=== PATIENT | male | born 1950 | race Caucasian/White ===

== ENCOUNTER 2018-02-12 16:38 | Inpatient (IN) | payer OTHER ==
[2018-02-12] MEDS ORDERED: D50W 25 GM/50 ML SYR IVP ONE (16:52)
[2018-02-12] MEDS ORDERED: CALCIUM GLUC 10% 1 GM/10 ML VIAL IVP ONE (16:52)
[2018-02-12] MEDS ORDERED: SODIUM BICARBONATE 150 MEQ in D5W 1,000 ML IV ONE (16:52)
[2018-02-12] MEDS ORDERED: ALBUTEROL 3 ML DEYVIAL IH ONE (16:52)
[2018-02-12] MEDS ORDERED: INSULIN REGULAR HUMAN 100 UNIT/ML UNIT IVP ONE (16:52)
[2018-02-12] MEDS ORDERED: ALBUTEROL 3 ML DEYVIAL ONE (17:14)
[2018-02-12 17:20] LABS: INR 1.7 (0.83-1.16); PROTIME(PATIENT) 20.1 SEC (12.0-15.0)
--- NOTE | 2018-02-12 17:23 | EDPHY ---
H & P Stated Complaint: Pt found by fam, AMS, tachypnic, dick denies ETOH/drugs Time Seen by Provider: 02/12/18 16:50 HPI/ROS: CHIEF COMPLAINT: Altered mental status HISTORY OF PRESENT ILLNESS: Patient is a 67-year-old alcoholic man whose mom called today because he was altered. He lives in a bus behind her house. He typically stops in daily to visit her but did not today. She went and found him minimally responsive in breathing heavy. She reports that he has no known medical history and that he has not been to the doctor for decades. She reports however that he does drink heavily. She did not suspect overdose and did not see any pills etc lying around. Patient will turn his head when his name is called but is minimally responsive otherwise and will not follow commands. He has Kussmaul breathing. Mom denies any recent fevers or infections. Mom states that he has not been drinking for the last several months. Paramedics noticed that his EKG was abnormal. Severity: Severe Modifying factors: None REVIEW OF SYSTEMS: Constitutional: See HPI EENTM: denies: blurred vision, double vision, nose congestion Respiratory: See HPI Cardiac: denies: chest pain, irregular heart rate, lightheadedness, palpitations Gastrointestinal/Abdominal: denies: abdominal pain, diarrhea, nausea, vomiting, blood streaked stools Genitourinary: denies: dysuria, frequency, hematuria, pain Musculoskeletal: denies: joint pain, muscle pain Skin: denies: lesions, rash, jaundice, bruising Neurological: See HPI Hematologic/Lymphatic: denies: blood clots, easy bleeding, easy bruising Immunologic/allergic: denies: HIV/AIDS, transplant 10 systems reviewed and negative except as noted EXAM: GENERAL: Well-appearing, well-nourished and in no acute distress. HEAD: Atraumatic, normocephalic. EYES: Pupils equal round and reactive to light, extraocular movements intact, sclera anicteric, conjunctiva are normal. ENT: TMs normal, nares patent, oropharynx clear without exudates. Moist mucous membranes. NECK: Normal range of motion, supple without lymphadenopathy or JVD. LUNGS: Breath sounds clear to auscultation bilaterally and equal. No wheezes rales or rhonchi. HEART: Regular rate and rhythm without murmurs, rubs or gallops. ABDOMEN: Slightly distended and firm BACK: No CVA tenderness, no spinal tenderness, step-offs or deformities EXTREMITIES: Normal range of motion, no pitting or edema. No clubbing or cyanosis. NEUROLOGICAL: Moving all extremities spontaneously. 5/5 strength, response to painful stimulus, normal reflexes, lateralizes to pain PSYCH: Normal mood, normal affect. SKIN: Pale Source: Family, EMS - Personal History Current Tetanus/Diphtheria Vaccine: Unsure Constitutional: Initial Vital Signs Heart Rate 105 H 02/12/18 16:49 Respiratory Rate 32 H 02/12/18 16:49 Blood Pressure 134/74 H 02/12/18 16:49 O2 Sat (%) 100 02/12/18 16:49 O2 Delivery Mode Nasal Cannula O2 (L/minute) 3 Allergies/Adverse Reactions: No Known Allergies Allergy (Verified 02/12/18 16:49) Home Medications: Medication Instructions Recorded Ibuprofen [Motrin (*)] 200 mg PO Q6 PRN 02/12/18 Medical Decision Making - Diagnostics EKG Interpretation: An EKG obtained and was read and documented in trace view. Please see trace view for full reading and report. Junctional bradycardia with peaked T-waves A repeat EKG obtained and was read and documented in trace view. Please see trace view for full reading and report. Junctional tachycardia with peaked T- waves Imaging Results: Imaging Impressions Chest X-Ray 02/12/18 17:15 Impression: Excellent central line position. Procedures: Procedure: Ultrasound guidance: Using the linear probe covered in a sterile sheath, a short axis of the vein was obtained. The vein was completely compressible and was identified as separate from the adjacent non-compressible arterial structure. Under real-time guidance, the introducer needle was observed up to the vein, and then punctured it. These images were saved on the database. Central line placement: The indication for the procedure was hyperkalemia. After verbal informed consent from patient; the risks were explained including bleeding, infection, and collapsed lung. Maximal sterile barrier technique was uses including cap, gown, sterile gloves, large sheet, hand washing and chlorhexidine prep. The area anesthetized with 1% lidocaine. The right IJ was punctured with a 19 gauge finder needle, then a wire introducer was placed, a triple-lumen was placed using Seldinger technique. There were no complications. Blood return low pressure, dark blood. The patient tolerated procedure well. CXR results: Line in good placement as interpreted by myself. Radiologist interpretation is pending. The procedure was performed by myself. ED Course/Re-evaluation: 5:[address] Padilla from [facility] as well as Dr. Guzman who will admit. Will place the patient in ICU. EKG unchanged after calcium gluconate and bicarb. Pacing now receiving insulin and albuterol. Will repeat labs every hour. 6:00 p.m. Tracy catheter placed in over L has come out. Nephrology thinks that he likely has BPH it has gradually worsened. Family does state that he has had trouble peeing recently and has not felt well. This post obstructive uropathy may be a large component of his renal failure as well. We had difficulty obtaining an accurate temperature. The patient's Tracy temp is now been taken and is low at 31. Bear hugger has been placed. Cultures have been sent. Differential Diagnosis: Partial list of the Differential diagnosis considered include but were not limited to; about a renal syndrome, hyperkalemia, acidosis and although unlikely based on the history and physical exam, I also considered sepsis, acute coronary disease. Critical Care Time: Critical care time spent by me, Dr. Trotter exclusive with this patient was 45 minutes, exclusive of the PA time exclusive of procedures. The organ system that was at risk was cardiovascular and I gave medications, consultation, admission to prevent worsening of the patient's condition - Data Points Laboratory Results: Laboratory Results 02/12/18 16:51 02/12/18 02/12/18 02/12/18 16:51 16:51 16:51 POC Hgb 7.1 gm/dL L gm/dL (13.7-17.5) POC Hct 21 % L % (40-51) PT 20.1 SEC H SEC (12.0-15.0) INR 1.70 H (0.83-1.16) APTT 33.1 SEC SEC (23.0-38.0) POC Sodium 137 mEq/L mEq/L (135-145) Sodium 139 mEq/L mEq/L (135-145) POC Potassium 8.2 mEq/L H* mEq/L (3.3-5.0) Potassium 8.5 mEq/L H* mEq/L (3.5-5.2) POC Chloride 115 mEq/L H mEq/L (97-110) Chloride 106 mEq/L mEq/L (97-110) Carbon Dioxide 5 mEq/l L* mEq/l (22-31) Anion Gap 28 mEq/L H mEq/L (6-14) POC BUN > 140 mg/dL H* mg/dL (7-23) BUN 283 mg/dL H* mg/dL (7-23) Creatinine 21.4 mg/dL H* mg/dL (0.7-1.3) POC Creatinine > 20.0 mg/dL H* mg/dL (0.7-1.3) Estimated GFR 2 Glucose 128 mg/dL H mg/dL (70-100) POC Glucose 124 mg/dL H mg/dL (70-100) Calcium 6.9 mg/dL L mg/dL (8.5-10.4) Magnesium 2.3 mg/dL mg/dL (1.6-2.3) Total Bilirubin 0.3 mg/dL mg/dL (0.1-1.4) Conjugated Bilirubin 0.3 mg/dL mg/dL (0.0-0.5) Unconjugated Bilirubin 0.0 mg/dL mg/dL (0.0-1.1) AST 27 IU/L IU/L (17-59) ALT 33 IU/L IU/L (21-72) Alkaline Phosphatase 84 IU/L IU/L (38-126) POC Troponin I Total Protein 7.0 g/dL g/dL (6.3-8.2) Albumin 3.8 g/dL g/dL (3.5-5.0) Lipase 3239 IU/L H IU/L (23-300) Salicylates < 1.0 mg/dL L mg/dL (2.0-20.0) Acetaminophen < 10 mcg/mL L mcg/mL (10-30) Ethyl Alcohol < 10 mg/dL mg/dL (0-10) 02/12/18 16:49 POC Hgb POC Hct PT INR APTT POC Sodium Sodium POC Potassium Potassium POC Chloride Chloride Carbon Dioxide Anion Gap POC BUN BUN Creatinine POC Creatinine Estimated GFR Glucose POC Glucose Calcium Magnesium Total Bilirubin Conjugated Bilirubin Unconjugated Bilirubin AST ALT Alkaline Phosphatase POC Troponin I 0.07 ng/mL ng/mL (0.00-0.08) Total Protein Albumin Lipase Salicylates Acetaminophen Ethyl Alcohol Medications Given: Propofol (Diprivan 10 Mg/Ml (Premix)) 100 mls @ 0 mls/hr IV CONT EL; Per Protocol PRN Reason: Protocol Stop: 08/11/18 20:29 Last Admin: 02/12/18 21:20 Dose: 100 mls Levetiracetam (Keppra (Premix)) 100 mls @ 400 mls/hr IV BID EL Stop: 08/11/18 21:29 Last Admin: 02/12/18 21:20 Dose: 100 mls Sodium Bicarbonate 150 meq/ (Dextrose) 1,150 mls @ 150 mls/hr IV CONT EL Stop: 08/11/18 21:14 Last Admin: 02/12/18 22:30 Dose: 1,150 mls Pantoprazole Sodium (Protonix) 40 mg IVP BID EL Stop: 08/11/18 20:59 Last Admin: 02/12/18 22:15 Dose: 40 mg Discontinued Medications Albuterol (Proventil Neb) 12 ml IH EDNOW ONE Stop: 02/12/18 16:53 Last Admin: 02/12/18 17:28 Dose: 12 ml Calcium Gluconate (Calcium Gluconate) 1 gm IVP EDNOW ONE Stop: 02/12/18 16:53 Last Admin: 02/12/18 17:07 Dose: 1 gm Dextrose (Dextrose 50% Syringe) 25 gm IVP EDNOW ONE Stop: 02/12/18 16:53 Last Admin: 02/12/18 17:10 Dose: 25 gm Etomidate (Etomidate) 20 mg IVP ONCE ONE Stop: 02/12/18 21:01 Last Admin: 02/12/18 20:15 Dose: 20 mg Sodium Bicarbonate 150 meq/ (Dextrose) 1,150 mls @ 0 mls/hr IV EDNOW ONE PRN Reason: As Directed Stop: 02/12/18 16:53 Last Admin: 02/12/18 18:10 Dose: 1,150 mls Cefazolin Sodium/Dextrose (Ancef) 100 mls @ 200 mls/hr IV ONCALL ONE PRN Reason: Protocol Stop: 02/12/18 18:37 Last Admin: 02/12/18 19:51 Dose: Not Given Sodium Chloride (Ns) 1,000 mls @ 0 mls/hr IV EDNOW ONE; Wide Open PRN Reason: Protocol Stop: 02/12/18 18:42 Last Admin: 02/12/18 16:50 Dose: 1,000 mls Insulin Human Regular (Humulin R) 10 unit IVP EDNOW ONE Stop: 02/12/18 16:53 Last Admin: 02/12/18 17:10 Dose: 10 mg Mannitol (Mannitol 25%) 25 gm IVP ONCE ONE Stop: 02/12/18 18:48 Last Admin: 02/12/18 19:28 Dose: 12.5 gm Rocuronium [place] (Zemuron) 100 mg IVP ONCE ONE Stop: 02/12/18 21:01 Last Admin: 02/12/18 20:15 Dose: 100 mg Point of Care Test Results: Chemistry 02/12/18 02/12/18 16:51 16:49 POC Sodium 137 mEq/L mEq/L (135-145) POC Potassium 8.2 mEq/L H* mEq/L (3.3-5.0) POC Chloride 115 mEq/L H mEq/L (97-110) POC BUN > 140 mg/dL H* mg/dL (7-23) POC Creatinine > 20.0 mg/dL H* mg/dL (0.7-1.3) POC Glucose 124 mg/dL H mg/dL (70-100) POC Troponin I 0.07 ng/mL ng/mL (0.00-0.08) ISTAT H&H 02/12/18 16:51 POC Hgb 7.1 gm/dL L gm/dL (13.7-17.5) POC Hct 21 % L % (40-51) Departure - Departure Disposition: [facility] Acute Clinical Impression: Hyperkalemia Acute renal failure (ARF) Qualifiers: Acute renal failure type: unspecified Qualified Code(s): N17.9 - Acute kidney failure, unspecified Condition: Critical
[2018-02-12] MEDS ORDERED: LIDOCAINE 1% 300 MG/30 ML SDV ONE (17:57)
[2018-02-12] MEDS ORDERED: ACETAMINOPHEN 325 MG TAB PO PRN (18:06)
[2018-02-12] MEDS ORDERED: HEPARIN 10,000 UNIT/10 ML MDV (1,000 UNIT/ML) IVP PRN (18:08)
[2018-02-12] MEDS ORDERED: ceFAZolin 2 GM/DEXTROSE 100 ML IV ONE (18:08)
--- NOTE | 2018-02-12 18:24 | PDCONSULT ---
Shift Mgr Note: 67 yo M with no known PMH but has not been to the doctor in many many years who presented to the ED with obtundation and heavy, deep breathing, found to have renal failure (Cr 21.4, BUN 283), hyperkalemia (K 8.5), metabolic acidosis ( bicarb 5) with very peaked T waves. History obtained mostly from mother and sister. Patient was previously a heavy drinker but family does not think he has been drinking for past several months. Only form of transportation is his bicycle and he was been too weak for several months to ride it. Mother has been getting his groceries and has not bought him any alcohol. Patient has been losing weight for many months. Mother suggested patient go to the doctor, but patient refused. At Thanksgiving dinner, patient told his [id number] that the "muscles around his stomach were hurting." He also mentioned that he was having difficulty urinating and that he started taking an OTC med for prostate. Family says the patient hasn't been well for many months. Family reports that patient does take a lot of Ibuprofen, which patient corroborates. Patient minimally interactive but does report taking Ibuprofen, having difficulty urinating, not eating/drinking much for at least several days. Reports significant nausea, no vomiting. Denies metallic taste and itching. Patient lives in a bus on his mother's property. When the patient did not come see his mother, his mother went to check on him and found patient confused and very heavy breathing, so called 911. Patient denies any toxic ingestion. Family History: unable to obtain 2/2 AMS Social History: per family, previous heavy drinking but they don't think that he has been drinking in many months. Lives in a bus on his mother's property ROS: minimal 2/2 AMS (see HPI above) Temp Pulse Resp BP Pulse Ox 31.3 C L 57 L 20 128/86 H 98 02/12/18 18:00 02/12/18 18:47 02/12/18 18:47 02/12/18 18:47 02/12/18 18:47 O2 (L/minute) 3 Exam: General- acute on chronically ill-appearing, intermittently answers yes/no questions, cachectic Eyes- anicteric sclera, no conjunctival injection HEENT- very dry mucous membranes with some dried blood on teeth, poor dentition Pulm- Kussmaul breathing, anterior lung neri CTAB, on 3L O2 NC CV- NRRR, no g/m/r, no LE edema Abd- soft, non-tender, non-distended - major catheter in place draining light yellow urine Skin- dry skin, no rashes or bruises on exposed skin Psych- somnolent, intermittently answers yes/no questions Neuro- CN II-XII grossly intact, in restraints POC Hgb 7.1 gm/dL (13.7-17.5) L 02/12/18 16:51 POC Hct 21 % (40-51) L 02/12/18 16:51 PT 20.1 SEC (12.0-15.0) H 02/12/18 16:51 INR 1.70 (0.83-1.16) H 02/12/18 16:51 APTT 33.1 SEC (23.0-38.0) 02/12/18 16:51 VBG Lactic Acid 1.2 mmol/L (0.7-2.1) 02/12/18 17:55 POC Sodium 137 mEq/L (135-145) 02/12/18 16:51 Sodium 139 mEq/L (135-145) 02/12/18 16:51 POC Potassium 8.2 mEq/L (3.3-5.0) H* 02/12/18 16:51 Potassium 8.5 mEq/L (3.5-5.2) H* 02/12/18 16:51 POC Chloride 115 mEq/L (97-110) H 02/12/18 16:51 Chloride 106 mEq/L (97-110) 02/12/18 16:51 Carbon Dioxide 5 mEq/l (22-31) L* 02/12/18 16:51 Anion Gap 28 mEq/L (6-14) H 02/12/18 16:51 POC BUN > 140 mg/dL (7-23) H* 02/12/18 16:51 BUN 283 mg/dL (7-23) H* 02/12/18 16:51 Creatinine 21.4 mg/dL (0.7-1.3) H* 02/12/18 16:51 POC Creatinine > 20.0 mg/dL (0.7-1.3) H* 02/12/18 16:51 Estimated GFR 2 02/12/18 16:51 Glucose 128 mg/dL (70-100) H 02/12/18 16:51 POC Glucose 124 mg/dL (70-100) H 02/12/18 16:51 Calcium 6.9 mg/dL (8.5-10.4) L 02/12/18 16:51 Magnesium 2.3 mg/dL (1.6-2.3) 02/12/18 16:51 Total Bilirubin 0.3 mg/dL (0.1-1.4) 02/12/18 16:51 Conjugated Bilirubin 0.3 mg/dL (0.0-0.5) 02/12/18 16:51 Unconjugated Bilirubin 0.0 mg/dL (0.0-1.1) 02/12/18 16:51 AST 27 IU/L (17-59) 02/12/18 16:51 ALT 33 IU/L (21-72) 02/12/18 16:51 Alkaline Phosphatase 84 IU/L (38-126) 02/12/18 16:51 POC Troponin I 0.07 ng/mL (0.00-0.08) 02/12/18 16:49 Total Protein 7.0 g/dL (6.3-8.2) 02/12/18 16:51 Albumin 3.8 g/dL (3.5-5.0) 02/12/18 16:51 Lipase 3239 IU/L (23-300) H 02/12/18 16:51 Urine Osmolality 376 mosmo/kg (300-900) 02/12/18 17:55 Salicylates < 1.0 mg/dL (2.0-20.0) L 02/12/18 16:51 Urine Opiates Screen NEGATIVE (NEGATIVE) 02/12/18 17:55 Acetaminophen < 10 mcg/mL (10-30) L 02/12/18 16:51 Urine Barbiturates NEGATIVE (NEGATIVE) 02/12/18 17:55 Ur Phencyclidine Scrn NEGATIVE (NEGATIVE) 02/12/18 17:55 Ur Amphetamine Screen NEGATIVE (NEGATIVE) 02/12/18 17:55 U Benzodiazepines Scrn NEGATIVE (NEGATIVE) 02/12/18 17:55 Urine Cocaine Screen NEGATIVE (NEGATIVE) 02/12/18 17:55 U Marijuana (THC) Screen NEGATIVE (NEGATIVE) 02/12/18 17:55 Ethyl Alcohol < 10 mg/dL (0-10) 02/12/18 16:51 Assessment/Plan: 67 yo M with no known PMH but has not been to the doctor in many many years who presented to the ED with obtundation and heavy, deep breathing, found to have renal failure (Cr 21.4, BUN 283), hyperkalemia (K 8.5), metabolic acidosis ( bicarb 5) with very peaked T waves. # ROXI- most likely secondary to a combination of obstruction, volume depletion, and ibuprofen and likely has been progressive for some time. --IR to put temp dialysis catheter --Planning for emergent HD on 02/12 with mannitol to minimize risk of dialysis dysequilibrium syndrome --Major catheter placed in ED with 1L out with major placement and another 250mL in first 30min after major placement --Received NS, now getting started on bicarb drip *Renal ultrasound ordered *Serum osm pending and toxic ingestion work-up sent but low suspicion *UA # Hyperkalemia- secondary to renal failure --emergent HD on 02/12 --then assess for further dialysis needs depending on urine output and K trend # Metabolic acidosis (mixture of AG and NAGMA)- secondary to renal failure --AG 28, serum osm pending but doubt toxic ingestion # AMS- presumably secondary to uremia but could be multifactorial --HD # Elevated lipase- could be 2/2 renal failure and nausea related to uremia, but could also have pancreatitis --defer to primary team for further evaluation # History of alcohol abuse- family does not think patient has been drinking for some time because he has been feeling too poorly --abdominal ultrasound planned to evaluate for cirrhosis critical care time 5:25pm-6:59pm no including any procedures. >50% of time spent on counseling and coordination of care Discussed with Dr. Trotter and Dr. Guzman
--- NOTE | 2018-02-12 18:40 | PDHPUP ---
History & Physical Update H&P update statement: This history and physical update is based on an assessment of the patient which was completed after admission or registration (within 24 hours), but prior to the surgery/procedure. Renal failure in need of emergent dialysis. Plan for temp HD catheter placement. H&P update: H&P reviewed & patient examined, no change in patient's condition since H&P completed
[2018-02-12] MEDS ORDERED: NS 1,000 ML IV ONE (18:41)
[2018-02-12] MEDS ORDERED: MANNITOL 25% 12.5 GM/50 ML VIAL IVP ONE (18:47)
--- NOTE | 2018-02-12 18:57 | PDRADPN ---
Radiology Procedure Note Date of Procedure: 02/12/18 Radiologist: Ryan Neff Anesthesia: Local (Specify) (Lidocain) Pre-op Diagnosis: ROXI Post-op Diagnosis: ROXI Indication: ROXI Procedure: Temp HD cath Finding(s): Patent right IJ. 16 cm Temp HD catheter placed. Ok to use now. Inf/Abcess present in the surg proc area at time of surgery?: No EBL: Minimal
--- NOTE | 2018-02-12 19:14 | CPEKG ---
Test Reason : OPEN Blood Pressure : / mmHG Vent. Rate : 124 BPM Atrial Rate : 000 BPM P-R Int : 166 ms QRS Dur : 219 ms QT Int : 314 ms P-R-T Axes : 000 -64 040 degrees QTc Int : 451 ms Junctional tachycardia Ventricular bigeminy Nonspecific IVCD with LAD Left ventricular hypertrophy Abnormal T, consider ischemia, lateral leads Confirmed by Yves Trotter ([id number]) on 02/12/2018 7:14:06 PM Referred By: Confirmed By:Yves Trotter
--- NOTE | 2018-02-12 19:15 | CPEKG ---
Test Reason : OPEN Blood Pressure : / mmHG Vent. Rate : 054 BPM Atrial Rate : 000 BPM P-R Int : 256 ms QRS Dur : 195 ms QT Int : 573 ms P-R-T Axes : 000 -54 059 degrees QTc Int : 544 ms Atrial fibrillation Nonspecific IVCD with LAD Confirmed by Yves Trotter ([id number]) on 02/12/2018 7:14:27 PM Referred By: Confirmed By:Yves Trotter
[2018-02-12] MEDS ORDERED: LORazepam 2 MG/ML INJ ONE (20:15)
[2018-02-12 20:29] LABS: HEPATITIS B SURFACE ANTIGEN NEGATIVE (NEGATIVE)
[2018-02-12] MEDS ORDERED: CALCIUM CHLORIDE 1 GM/10 ML INJ ONE (20:30)
[2018-02-12 20:34] LABS: HEPATITIS B CORE AB TOTAL NEGATIVE (NEGATIVE)
--- NOTE | 2018-02-12 20:36 | PDGENHP ---
History and Physical - Chief Complaint found minimally responsive - History of Present Illness 67yo M who has not sought medical care for his adult life brought in by family after being found minimally responsive. He lives in a bus that is in the backyard of his mother's home. Typically has significant alcohol consumption. Family noticed that he was weaker than normal and drinking less around giving. Unable to ride on his bicycle due to weakness. He also reportedly told them that he was having trouble urinating around that time. He also complained of some back/flank pain for which he was taking ibuprofen but unclear how much. Family checked in on him today when they hadn't seen him in 2 days. In the ED, labs were remarkable for signficantly elevated potassium to 8.5 with peaked T waves on ECG. Creatinine was >20 and BUN >280. Patient was confused but arousable. A major catheter was placed with >1250mL of urine output. A central venous catheter was placed in the ED and then a temp dialysis catheter was placed by IR. Nephrology was consulted and HD was initiated. After approximately 50 minutes of HD in the ICU, the patient seized and briefly coded with ROSC after about 2 minutes of CPR (please see separate Code Blue note). He was intubated. Post-code labs showed a hemoglobin of 4.8 with improved K at 4.2 and bicarbonate had improved from 5 to 14. The etiology of his loss of pulses was unclear, possibly related to fluid shifts with HD vs anemia. History Information - Allergies/Home Medication List Allergies/Adverse Reactions: No Known Allergies Allergy (Verified 02/12/18 16:49) Home Medications: Ibuprofen [Motrin (*)] 200 mg PO Q6 PRN 02/12/18 [Last Taken Unknown] I have personally reviewed and updated: family history, medical history, social history, surgical history - Past Medical History Additional medical history: none known - Surgical History Reports: no pertinent surgical hx - Family History Additional family history: unknown - Social History Alcohol Use: Heavy (issues with alcohol abuse throughout whole life) Drug Use: None Additional social history: Lives in bus behind mother's house. Sister and mother at bedside. Review of Systems Review of Systems: Unable to obtain 2/2 patient's mental status. Physical Exam Physical Exam: Temp Pulse Resp BP Pulse Ox 32.8 C L 90 20 150/73 H 100 02/12/18 20:00 02/12/18 20:00 02/12/18 20:00 02/12/18 20:00 02/12/18 20:00 O2 (L/minute) 1 Constitutional: no apparent distress, chronically ill appearing Eyes: anicteric sclera Ears, Nose, Mouth, Throat: dry mucous membranes, other (dried blood in mouth) Cardiovascular: no murmur, rub, or gallop, tachycardia, No edema Respiratory: no rales or rhonchi, other (tachypneic), No expiratory wheeze Gastrointestinal: normoactive bowel sounds, soft, non-tender abdomen, no palpable masses Genitourinary: major in urethra Skin: warm Musculoskeletal: generalized weakness Neurologic: other (alert, nodding to some questions but generally not oriented, moving all extremities) Psychiatric: encephalopathic Lab Data & Imaging Review 02/12/18 20:35 02/12/18 20:35 POC Hgb 7.1 gm/dL (13.7-17.5) L 02/12/18 16:51 POC Hct 21 % (40-51) L 02/12/18 16:51 PT 20.1 SEC (12.0-15.0) H 02/12/18 16:51 INR 1.70 (0.83-1.16) H 02/12/18 16:51 APTT 33.1 SEC (23.0-38.0) 02/12/18 16:51 VBG Lactic Acid 1.2 mmol/L (0.7-2.1) 02/12/18 17:55 POC Sodium 137 mEq/L (135-145) 02/12/18 16:51 Sodium 139 mEq/L (135-145) 02/12/18 16:51 POC Potassium 8.2 mEq/L (3.3-5.0) H* 02/12/18 16:51 Potassium 8.5 mEq/L (3.5-5.2) H* 02/12/18 16:51 POC Chloride 115 mEq/L (97-110) H 02/12/18 16:51 Chloride 106 mEq/L (97-110) 02/12/18 16:51 Carbon Dioxide 5 mEq/l (22-31) L* 02/12/18 16:51 Anion Gap 28 mEq/L (6-14) H 02/12/18 16:51 POC BUN > 140 mg/dL (7-23) H* 02/12/18 16:51 BUN 283 mg/dL (7-23) H* 02/12/18 16:51 Creatinine 21.4 mg/dL (0.7-1.3) H* 02/12/18 16:51 POC Creatinine > 20.0 mg/dL (0.7-1.3) H* 02/12/18 16:51 Estimated GFR 2 02/12/18 16:51 Glucose 128 mg/dL (70-100) H 02/12/18 16:51 POC Glucose 124 mg/dL (70-100) H 02/12/18 16:51 Serum Osmolality 416 mosmo/kg (280-297) H 02/12/18 17:55 Calcium 6.9 mg/dL (8.5-10.4) L 02/12/18 16:51 Magnesium 2.3 mg/dL (1.6-2.3) 02/12/18 16:51 Total Bilirubin 0.3 mg/dL (0.1-1.4) 02/12/18 16:51 Conjugated Bilirubin 0.3 mg/dL (0.0-0.5) 02/12/18 16:51 Unconjugated Bilirubin 0.0 mg/dL (0.0-1.1) 02/12/18 16:51 AST 27 IU/L (17-59) 02/12/18 16:51 ALT 33 IU/L (21-72) 02/12/18 16:51 Alkaline Phosphatase 84 IU/L (38-126) 02/12/18 16:51 Ammonia 17.0 uMOL/L (9.0-30.0) 02/12/18 19:50 POC Troponin I 0.07 ng/mL (0.00-0.08) 02/12/18 16:49 Total Protein 7.0 g/dL (6.3-8.2) 02/12/18 16:51 Albumin 3.8 g/dL (3.5-5.0) 02/12/18 16:51 Lipase 3239 IU/L (23-300) H 02/12/18 16:51 Urine Osmolality 376 mosmo/kg (300-900) 02/12/18 17:55 Ur Random Creatinine 55.8 mg/dL 02/12/18 17:55 U Random Total Protein 51 mg/dL (0-11) H 02/12/18 17:55 Ur Random Sodium 59 mEq/L (30-90) 02/12/18 17:55 Salicylates < 1.0 mg/dL (2.0-20.0) L 02/12/18 16:51 Urine Opiates Screen NEGATIVE (NEGATIVE) 02/12/18 17:55 Acetaminophen < 10 mcg/mL (10-30) L 02/12/18 16:51 Urine Barbiturates NEGATIVE (NEGATIVE) 02/12/18 17:55 Ur Phencyclidine Scrn NEGATIVE (NEGATIVE) 02/12/18 17:55 Ur Amphetamine Screen NEGATIVE (NEGATIVE) 02/12/18 17:55 U Benzodiazepines Scrn NEGATIVE (NEGATIVE) 02/12/18 17:55 Urine Cocaine Screen NEGATIVE (NEGATIVE) 02/12/18 17:55 U Marijuana (THC) Screen NEGATIVE (NEGATIVE) 02/12/18 17:55 Ethyl Alcohol < 10 mg/dL (0-10) 02/12/18 16:51 Hep Bs Antigen NEGATIVE (NEGATIVE) 02/12/18 17:37 Hep B Core Total Ab NEGATIVE (NEGATIVE) 02/12/18 17:37 Assessment & Plan Assessment: 67yo M with history of etoh abuse who has not sought medical care for his adult life brought in by family after being found minimally responsive. Labs show acute renal failure and severe hyperkalemia with ECG changes. Plan: 1. Acute renal failure: Suspect multifactorial from obstruction (likely prostatic), nsaid use, and dehydration. No prior labs for comparison. - Nephrology aware - IR placed temp dialysis cath, s/p 50 minutes HD this evening - Plan for CRRT tomorrow - Continue major - Renal ultrasound, UA, urine lytes ordered - Checking serum osm, toxic alcohols ordered in ED 2. Life-threatening hyperkalemia: Due to above - Down to 4.2 after emergent HD, recheck in AM - Telemetry 3. Cardiac arrest: ROSC after brief CPR, no meds. Telemetry shows significant bradycardia around time of arrest. I suspect he seized -> respiratory failure - > bradycardia -> arrest. 4. Severe anemia: Hgb 4.8 in post-code labs. Has uremic platelet dysfunction and coagulopathy putting him at risk for bleeding but none identified on exam. - Transfuse 2u PRBCs now, recheck - Start IV PPI 5. Acute respiratory failure: In setting of seizure/inability to protect airway. - Now intubated. Continue lung protective ventilation. Propofol for sedation 6. Seizure: Suspicious that this was related to fluid/electrolyte shifts with HD. Seizure threshold certainly lowered with BUN>280. - Start keppra 500mg IV BID 7. Metabolic acidosis: Anion and non-anion gap, related to renal failure. - Improved after initial HD, continue bicarbonate gtt - Follow up toxic ingestion labs 8. Acute metabolic encephalopathy: Surprisingly he was mildly alert prior to arrest. Related to uremia. - Utox, salicylates, acetominophen levels pending 9. Elevated lipase: Unclear if denotes true pancreatitis vs r/t nausea/vomiting in setting of renal failure. - Checking US to evaluate gallbladder/biliary tree and pancreas 10. Etoh abuse: Family reports he hasn't been drinking for >1 month because he' s been feeling so poorly, making him low risk for alcohol withdrawal. - IV thiamine - Check RUQ ultrasound to eval for cirrhosis 11. Coagulopathy: Nutritional vs r/t possible liver disease. - Monitor, vit K/FFP if bleeding VTE ppx: SCDs, holding pharmacologic with anemia Code: full GI ppx: PPI Diet: NPO Dispo: Admit as inpatient to ICU I spent a total of 75 minutes of critical care time between initial evaluation and cardiac arrest. >50% of time spent on counseling and coordination of care.
--- NOTE | 2018-02-12 20:37 | EDPHY ---
Inpatient Procedure Narrative: Was called to the patient's room because there was a code blue. It reportedly the patient had seized. Medicine and surgical services were there and requesting intubation. Intubation: Emergent intubation. While manually bagging the patient and maintaining the airway, The patient was sedated with 20 mg of Etomidate and paralyzed with 100 mg rocuronium. A 7.5 endotracheal tube was placed using the Glidescope. It was placed at 24 cm at the teeth. Placement was confirmed by direct visualization, good color change, and bilateral breath sounds with absent gastric sounds. Chest x-ray is pending. Saturations improved significantly and the procedure was successful.
--- NOTE | 2018-02-12 20:40 | PDCODEBLUE ---
Code Blue Note Responded to overhead Code Blue on this patient. Upon my arrival, patient already with ROSC. Per RN and optical instrument assembler, patient seized about 50 minutes into HD. Then became bradycardic and lost pulses. Code was called with immediate initiation of CPR which last approximately 2 minutes prior to regaining pulses. He did not receive epinephrine. We gave him 1g calcium, mannitol, and he was receiving bicarbonate IV. He was bag-masked. ED physician Yves Trotter performed rapid sequence intubation with rocuronium and etomidate. His BP remained stable throughout. He was placed on ventilator. Etiology of seizure and loss of pulses unclear, possibly related to fluid shifts during HD. I personally notified color card maker (Dr Carnes) and tug master (Dr Pham). CBC, CMP, ABG, CXR, ECG ordered post-code. OG tube being placed for copious secretions. RN notifying family.
[2018-02-12 20:58] LABS: PLATELET COUNT 155 10^3/uL (150-400)
[2018-02-12] MEDS ORDERED: ETOMIDATE 40 MG/20 ML INJ IVP ONE (21:00)
[2018-02-12] MEDS ORDERED: ROCURONIUM 100 MG/10 ML VIAL IVP ONE (21:00)
[2018-02-12] MEDS ORDERED: HEPARIN 50,000 UNIT/10 ML VIAL ONE (21:14)
[2018-02-12] MEDS: levETIRAcetam 500MG/NACL 100 ML IV SCH (21:20)
[2018-02-12] MEDS: PROPOFOL/EMULSION 100 ML IV SCH (21:20)
[2018-02-12] MEDS ORDERED: HEPARIN 5,000 UNIT/0.5 ML INJ SC SCH (22:00)
[2018-02-12] MEDS: PANTOPRAZOLE SODIUM 40 MG VIAL IVP SCH (22:15)
[2018-02-12] MEDS: SODIUM BICARBONATE 150 MEQ in D5W 1,000 ML IV SCH (22:30)
[2018-02-13] MEDS: fentaNYL 100 MCG/2 ML INJ IVP PRN ×2 (02:39→05:56)
[2018-02-13] MEDS: PROPOFOL/EMULSION 100 ML IV SCH (02:40)
[2018-02-13 04:23] LABS: PLATELET COUNT 133 10^3/uL (150-400)
[2018-02-13 04:31] LABS: INR 1.51 (0.83-1.16); PROTIME(PATIENT) 18.4 SEC (12.0-15.0)
[2018-02-13] MEDS: SODIUM BICARBONATE 150 MEQ in D5W 1,000 ML IV SCH (05:08)
[2018-02-13] MEDS: THIAMINE HCL 500 MG in NS 100 ML IV SCH ×3 (05:10→20:54)
[2018-02-13] MEDS ORDERED: NS 1,000 ML IV ONE (07:30)
[2018-02-13] MEDS: PANTOPRAZOLE SODIUM 40 MG VIAL IVP SCH ×2 (08:16→19:57)
[2018-02-13] MEDS: levETIRAcetam 500MG/NACL 100 ML IV SCH ×2 (08:16→19:57)
[2018-02-13 08:38] LABS: PLATELET COUNT 130 10^3/uL (150-400)
[2018-02-13] MEDS ORDERED: CALCIUM GLUCONATE 1 GM in D5W 50 ML IV ONE ×2 (10:30→14:30)
[2018-02-13] MEDS ORDERED: MAGNESIUM SULF 2 GM/WATER 50 ML IV ONE (10:30)
--- NOTE | 2018-02-13 13:38 | GCON ---
PULMONARY/CRITICAL CARE CONSULTATION DATE OF CONSULTATION: 02/13/2018 REFERRING PHYSICIAN: Andrea Guzman MD REASON FOR CONSULT: Evaluation and management of respiratory failure. HISTORY: The patient is a 67-year-old male who does not usually seek medical care. Lives in a bus i n the backyard of his mother's home. He has significant alcohol intake. He has apparently been feel ing weaker than usual over the last few weeks and was reporting having difficulty urinating and had s ome back/flank pain. Family checked on him yesterday after not seeing him for a day or two, and he w as found minimally responsive. He was brought to the emergency department where he was found to have a potassium of 8.5, a creatinine of over 20, and a BUN of over 280. A Tracy catheter was placed and there was over 1200 cc of urine. A central catheter was placed and then a dialysis catheter was jayda robert. He was given some calcium and then hemodialysis was started. About 50 minutes into hemodialysi s, the patient seized and briefly coded. He had return of spontaneous circulation within about 2 min utes. He was intubated during the code. PAST MEDICAL HISTORY: None. MEDICATIONS: None. ALLERGIES: None. SOCIAL HISTORY: Heavy alcohol use. FAMILY HISTORY: Unremarkable. REVIEW OF SYSTEMS: Unobtainable. PHYSICAL EXAMINATION: GENERAL: The patient is intubated and sedated but arousable. He is not relia rose following commands. VITAL SIGNS: His blood pressure is 123/73 with a heart rate of 99. He is a febrile. Oxygen saturations are 97% on 40% oxygen. HEENT: Normocephalic and atraumatic. No icteru s. NECK: No JVD. Trachea is midline. CHEST: Clear to auscultation. CARDIAC: Regular rate and r hythm without murmur. ABDOMEN: Soft, nontender. Bowel sounds are present. EXTREMITIES: No clubbi ng, cyanosis, or edema. NEURO: The patient is somnolent but arousable and follows some simple comma nds but does not reliably or persistently follow commands or answer questions. LABORATORY: A creatinine is 12.7, down from 21.4. A BUN is 195, down from 283. A potassium is 4.1, down from 8.5. A calcium is 5.8, coming down from 8.0. An albumin is 2.5. An ionized calcium is 1 .16. Hemoglobin is 7.9. This was 7.1 at admission and fell to 4.8 post arrest. White blood count i s 2.2. A platelet count is 130. An INR is 1.5. An arterial blood gas shows a pH of 7.35 with a pO2 of 119, a CO2 of 27, a bicarbonate is 15, on CPAP with 40% oxygen. His pH is up from 7.19 at the ti me of the arrest. IMAGING: A chest x-ray shows some interstitial edema/fluid overload. The endotracheal tube is appro priately positioned. Images reviewed by me. Abdominal ultrasound demonstrates mild hydronephrosis o f the left kidney with limited assessment of the right kidney. ASSESSMENT: 1. Renal failure. This is likely acute renal failure. It could be due to an obstructive uropathy w ith a large volume of urine obtained after catheterization. It also could be due to acute tubular ne crosis related to shock, poor perfusion if he was down for a while. Ibuprofen could have contributed as well. The patient had urgent indications for dialysis, which resulted in a seizure. His electro lytes and acid-base status currently do not warrant emergent dialysis. Chest x-ray does suggest some fluid overload, but he is currently making urine. 2. Seizure. This is likely related to fluid and electrolyte shifts due to hemodialysis. It is also possible that he has an underlying seizure disorder, but this seems less likely as there has been no prior history of this. An alcohol-withdrawal seizure is also possible. 3. Respiratory failure. This is a result of the seizure and arrest, which have been addressed. He is currently doing well on the ventilator and has passed weaning parameters so likely can be extubate d. 4. Anemia. The patient has severe anemia which may be due to acute renal failure and/or alcohol abu se. He had a marked decrease in his hemoglobin at the time of the arrest. This has improved with tr ansfusion. There is no evidence of active blood loss. 5. Leukopenia. This has developed during hospitalization and is likely related to bone marrow suppr ession from his acute illness and prior alcohol use. 6. History of alcohol abuse. The patient has apparently cut down recently because he has been feeli ng quite poorly, but he is at some risk for withdrawal. RECOMMENDATIONS: 1. We will attempt to extubate. Continue to follow electrolytes closely and resume dialysis if an i ndication develops. Follow white blood count and hemoglobin, transfusing red blood cells as necessar y. 2. Continue Keppra for now. /[id number]/MODL
[2018-02-13] MEDS ORDERED: CALCIUM GLUCONATE 50 ML IV ONE (14:05)
--- NOTE | 2018-02-13 14:26 | SOAPPROG ---
SOAP Progress Note Assessment/Plan: Assessment/Plan: 67 yo M with no known PMH but has not been to the doctor in many many years who presented to the ED with obtundation and heavy, deep breathing, found to have renal failure (Cr 21.4, BUN 283), hyperkalemia (K 8.5), metabolic acidosis ( bicarb 5) with very peaked T waves. Emergent HD on 02/12 90 minutes in despite mannitol pre-HD and dialysis on high Ca bath, followed by brief cardiac arrest and brief intubation. # ROXI- most likely secondary to a combination of obstruction, volume depletion, and ibuprofen and likely has been progressive for some time. --IR temp dialysis catheter on 02/12 followed by 90min of emergent HD complicated by seizure --Major catheter placed in ED with 1L out with major placement and another 250mL in first 30min after major placement *Intermittent boluses, now on NS at 150mL/hr *Renal ultrasound with limited assessment of R kidney (planning to repeat to get better view), mild hydro of L kidney *UA *Continue monitor Cr trend, hopefully will not need any further dialysis # Hyperkalemia- secondary to renal failure --emergent HD on 02/12 (90min complicated by seizure). K now ok despite PRBC transfusion # Hypocalcemia- 2/2 renal failure --Checking q6h overnight and replacing PRN # Metabolic acidosis (mixture of AG and NAGMA)- secondary to renal failure --AG 28 on admission, no osmolar gap --now off bicarb drip # AMS- presumably secondary to uremia but could be multifactorial --improved some with HD, unclear baseline --CTM # Severe anemia- Hgb 4.8 on initial check. Patient denies any GI bleeding. Suggests combination of liver and kidney disease since liver should take over Epo production once Hgb drops to <7. --Received 3u PRBC's --CTM # Seizure- likely 2/2 combination of metabolic derangements and some element of dialysis dysequilibrium, occurred despite pre-treating with mannitol. Needed increased clearance with HD due to life-threatening hyperkalemia (8.5) with significant EKG changes. Only received 90min of treatment. --now on Keppra --hopefully patient will not need further dialysis --replacing calcium # History of alcohol abuse- family does not think patient has been drinking for some time because he has been feeling too poorly # Elevated lipase- could be 2/2 renal failure and nausea related to uremia, but could also have pancreatitis --defer to primary team for further evaluation Discussed with Dr. Davis Subjective: HD last night for less than 90min with mannitol given pre-HD and planned for 1hr in to treatment. Patient had seizure followed by brief cardiac arrest. Patient intubated during code. Given additional mannitol and IV calcium during the code. Recently has been putting out 60mL/hr UOP. Hgb returned at 4.8, received total of 3 units. Patient now extubated. Denies any specific complaints this morning. Objective: Vital Signs Temp Pulse Resp BP Pulse Ox 36.3 C 94 22 H 153/67 H 95 02/13/18 14:00 02/13/18 14:00 02/13/18 14:00 02/13/18 14:00 02/13/18 14:00 Laboratory Results 02/13/18 08:20 02/13/18 12:55 02/12/18 02/13/18 02/14/18 05:59 05:59 05:59 Intake Total 4081 Output Total 2950 Balance 1131 PT 18.4 SEC (12.0-15.0) H 02/13/18 04:10 INR 1.51 (0.83-1.16) H 02/13/18 04:10 General- acute on chronically ill-appearing, cachectic Eyes- anicteric sclera, no conjunctival injection HEENT- dry mucous membranes with some dried blood on teeth, poor dentition Pulm- coarse breath sounds, breathing comfortably on O2 NC CV- NRRR, no g/m/r, no LE edema Abd- soft, non-tender, non-distended - major catheter in place draining pink urine Skin- dry skin, some stasis changes of bilateral LE edema with wrinkling of skin on lower extremities Psych- more alert than on admission, answers some questions Neuro- CN II-XII grossly intact, oriented x 2 Imaging Impressions Abdomen Ultrasound 02/13/18 06:20 Impression: 1. Mild hepatomegaly. The main portal vein is patent. 2. Mild intrahepatic bile duct dilatation, with no evidence of extrahepatic bile duct dilatation. 3. Gallbladder wall thickening, with no pericholecystic fluid or cholelithiasis. 4. Limited assessment of the tortuous midabdominal aorta, partially obscured by adjacent fluid-filled loops of bowel and limited assessment. 5. Limited assessment of the right kidney, with mild hydronephrosis of the left kidney, of uncertain etiology. ICD10 Worksheet Patient Problems: Problems Problem Status Onset Acute renal failure (ARF) Acute Hyperkalemia Acute
--- NOTE | 2018-02-13 15:36 | HOSPPROG ---
Hospitalist Progress Note Assessment/Plan: Assessment: 67yo M with history of etoh abuse who has not sought medical care for his adult life brought in by family after being found minimally responsive. Labs show acute renal failure and severe hyperkalemia with ECG changes. Plan: # ROXI: multifactorial and likely due to obstruction, nsaids, volume depletion-- baseline unknown. Appreciate renal input, HD initiated but cardiac arrested during HD and was aborted. Creatinine trending down with major placement, renal following and no plans for repeat HD at this time. Renal US showing only mild hydro on left. # critical hyperkalemia: on presentation as high as 8.5 with associated peaked t waves, normalized s/p brief run of HD as well as calcium, insulin, albuterol, bicarb --continue to monitor # cardiac arrest: ROSC after brief CPR with likely antecedent seizure leading to respiratory failure and bradycardic prior to arrest # acute hypoxic respiratory failure: in the setting of seizure and inability to protect his airway, intubated emergently yesterday but now extubated and maintaining o2 sats. CXR personally reviewed and notable for diffuse pulmonary edema also likely contributing, will repeat cxr in am. Patient high risk for aspiration during yesterdays event, no current e/o pna but low threshold to initiate abx # severe anemia/pancytopenia: without clear e/o acute bleed but patient with coagulopathy and likely at least some component of CKD contributing, continue to monitor # metabolic acidosis: 2/2 renal failure/hypoperfusion, toxic alcohols pending at this time, no longer on bicarb gtt # seizure: presumably metabolic cause in setting of severe uremia and profound metabolic derangements while undergoing HD, on keppra for now # metabolic encephalopathy: in the setting of severe uremia, currently able to communicated some # FTT: sounds as though patient has been living in a bus behind his mother's house and is noted to be quite disheveled, malodorous and concerns that this is not a safe living situation given his presentation. CM to be involved. # elevated lipase: ? acute pancreatitis given significant elevation, unable to really assess for sxs such as abdominal pain given his presentation, will get repeat lipase in am, abdominal US does not note any abnormalities of the pancreas, but limited evaluation # etoh abuse: per family patient has not been drinking x 1 month, no e/o withdrawal currently, # coagulopathy: no e/o bleeding currently, INR of 1.5 # hyperphosphatemia: in setting of ROXI # IP status, critically ill requiring ICU level care, > 40 min spent in critical care time more than half in evaluation of labs and imaging, bedside evaluation and coordination of care with other MDs Subjective: patient extubated this am successfully, he is able to answer questions largely with yes or no, no new issues overnight Objective: Vital Signs Temp Pulse Resp BP Pulse Ox 36.3 C 94 22 H 153/67 H 95 02/13/18 14:00 02/13/18 14:00 02/13/18 14:00 02/13/18 14:00 02/13/18 14:00 Laboratory Results 02/13/18 08:20 02/13/18 12:55 02/12/18 02/13/18 02/14/18 05:59 05:59 05:59 Intake Total 4081 Output Total 2950 Balance 1131 PT 18.4 SEC (12.0-15.0) H 02/13/18 04:10 INR 1.51 (0.83-1.16) H 02/13/18 04:10 malodorous, disheveled anicteric poor dentition dry mm rrr no mrg cta dec at bases soft nt nd + major ble edema warm dry well perfused encephalopathic, moves all 4, answers 'yes/no' ICD10 Worksheet Patient Problems: Problems Problem Status Onset Hyperkalemia Acute Acute renal failure (ARF) Acute
--- NOTE | 2018-02-13 17:31 | ASMTCMCOM ---
CM Note CM Note Notes: Reviewed chart. Pt admitted for life-threatening hyperkalemia, altered mental status and severe renal failure. Pt is s/p dialysis with a seizure and a brief code with ROSC. History includes ETOH abuse. The pt lives in a bus in the backyard of his mother's house. Per ICU rounds, pt to be extubated today. Pt will need additional dialysis in the next day or so. Discharge plan remains unclear at this time. Pt's mother and sister are involved in his care. CM will continue to follow. Discharge Plan: To be determined Date Signed: 02/13/2018 05:30 PM Electronically Signed By:Jessica Cary RN
[2018-02-13] MEDS: NS 1,000 ML IV SCH (18:06)
--- NOTE | 2018-02-13 18:23 | PDMN ---
Medical Necessity Medical necessity: Pt meets IP criteria as of 02/12/2018 per and MCG [id number] ( renal failure, acute); est los > 2 mn for ongoing tx and management of acute renal failure (creatinine >20, BUN >280) with life-threatening hyperkalemia (K+ 8.5) , cardiac arrest, severe anemia and acute respiratory failure.
[2018-02-14] MEDS: NS 1,000 ML IV SCH (00:18)
[2018-02-14] MEDS: fentaNYL 100 MCG/2 ML INJ IVP PRN (00:30)
[2018-02-14] MEDS: THIAMINE HCL 500 MG in NS 100 ML IV SCH ×3 (05:11→21:56)
[2018-02-14 05:31] LABS: PLATELET COUNT 107 10^3/uL (150-400)
[2018-02-14] MEDS ORDERED: CALCIUM GLUCONATE 1 GM in D5W 50 ML IV ONE ×2 (07:00→20:00)
[2018-02-14] MEDS ORDERED: FUROSEMIDE 100 MG/10 ML VIAL IVP ONE (07:00)
[2018-02-14] MEDS: PANTOPRAZOLE SODIUM 40 MG VIAL IVP SCH ×2 (08:05→21:06)
[2018-02-14] MEDS ORDERED: MANNITOL 25% 12.5 GM/50 ML VIAL MISC ONE (08:45)
[2018-02-14] MEDS: levETIRAcetam 500MG/NACL 100 ML IV SCH ×2 (09:03→21:09)
--- NOTE | 2018-02-14 09:06 | CPEKG ---
Test Reason : OPEN Blood Pressure : / mmHG Vent. Rate : 101 BPM Atrial Rate : 101 BPM P-R Int : 182 ms QRS Dur : 088 ms QT Int : 372 ms P-R-T Axes : 017 029 067 degrees QTc Int : 483 ms Sinus tachycardia Borderline prolonged QT interval Confirmed by Jonnie Somers ([id number]) on 02/14/2018 9:05:57 AM Referred By: Confirmed By:Jonnie Somers
[2018-02-14] MEDS ORDERED: CEFEPIME HCL 2 GM in NS 100 ML IV SCH (12:00)
[2018-02-14] MEDS ORDERED: CEFEPIME HCL 1 GM in NS 50 ML IV SCH (12:15)
[2018-02-14] MEDS ORDERED: VANCOMYCIN HCL/NORMAL SALINE 250 ML IV ONE (12:58)
--- NOTE | 2018-02-14 13:45 | PDINTPN ---
Product Design Manager Progress Note Assessment/Plan: Assessment: 67-year-old male with a history of alcoholism brought in after feeling poorly for about a month, including difficulty urinating. Creatinine 21.4, potassium 8.5 at admission. Had a seizure during initial dialysis run, intubated then extubated the next morning. Acute kidney injury: Likely due to you obstructive uropathy in combination with NSAID use and dehydration with poor p.o. Intake. Ultrasound revealed mild bilateral hydronephrosis. Underwent 2nd dialysis run today. Developed hypotension with attempt at fluid removal. Currently no indication for emergent dialysis, with improved potassium, although he does continue to have a mixed anion gap and non-anion gap metabolic acidosis. He is nonoliguric. Acute respiratory failure. Because of his seizure with initial dialysis. Today he is having increased respiratory distress with retained secretions. Chest x-ray demonstrates increased infiltrates. Oxygen saturations are acceptable, but his CO2 is rising inappropriately given his metabolic acidosis, consistent with a concurrent respiratory acidosis. History of alcoholism: His longstanding history of heavy alcohol intake. He may be at risk for withdrawal, although his mother does not think he has been drinking much recently because he has been feeling poorly. Seizure: This is likely due to acute saw you changes with dialysis in the presence of severe uremia. It has not recurred. Anemia likely due to combination of renal failure and alcoholism. He has been transfused with 3 units of packed red blood cells, and his hemoglobin remains low at 8. Thrombocytopenia: Remains in the low 100s. Likely due to alcoholism GPC on blood culture: Question due to bacteremia or contaminant. Plan: Trial of BiPAP to see if this can improve his respiratory status. He may need to be intubated. Follow H/H Monitor for signs/symptoms of alcohol withdrawal Repeat blood cultures and start cefepime/vancomycin Check CVP and possibly check fluid responsiveness via NICOM monitor 02/14/18 13:32 02/14/18 13:46 Subjective: Increased dyspnea/tachypnea. Denies pain Objective: Vital Signs Temp Pulse Resp BP Pulse Ox 37.1 C 121 H 32 H 93/47 L 96 02/14/18 12:00 02/14/18 12:00 02/14/18 12:00 02/14/18 12:00 02/14/18 12:00 Laboratory Results 02/14/18 05:15 02/14/18 05:15 02/13/18 02/14/18 02/15/18 05:59 05:59 05:59 Intake Total 4081 4466 Output Total 2950 1625 Balance 1131 2841 PT 18.4 SEC (12.0-15.0) H 02/13/18 04:10 INR 1.51 (0.83-1.16) H 02/13/18 04:10 Blood cultures 1/2 positive for Gram-positive cocci in clusters Chest x-ray: Increased bibasilar infiltrates. Images reviewed by me. Laboratory Tests 02/14/18 02/14/18 02/14/18 05:15 05:15 11:35 VBG pH 7.27 L VBG HCO3 17 L VBG Total CO2 18 L VBG O2 Saturation 53 L Mixed VBG pCO2 38 L Mixed VBG pO2 32 L Total O2 Concentration 15.0 O2 Concentration % 100 Sodium 140 Potassium 4.2 Chloride 109 Carbon Dioxide 14 L Anion Gap 17 H BUN 196 H* Creatinine 12.0 H* Calcium 6.1 L Albumin 2.2 L Physical Exam - Physical Exam General Appearance: alert, mild distress EENT: normal ENT inspection Neck: normal inspection Respiratory: rhonchi Cardiac/Chest: regular rate, rhythm, edema (1+) Abdomen: normal bowel sounds, non-tender Skin: normal color, warm/dry Extremities: normal inspection Neuro/Psych: alert, No normal mood/affect, No oriented x 3, No motor weakness ICD10 Worksheet Patient Problems: Problems Problem Status Onset Acute renal failure (ARF) Acute Hyperkalemia Acute
[2018-02-14] MEDS ORDERED: ALBUMIN 5% 250 ML IV ONE ×2 (14:09→17:00)
[2018-02-14] MEDS ORDERED: LIDOCAINE 2% JELLY 5 ML TUBE TP ONE (15:38)
[2018-02-14] MEDS ORDERED: LIDOCAINE 1% 300 MG/30 ML SDV MISC ONE (15:38)
[2018-02-14] MEDS: NOREPINEPHRINE BITARTRATE 4 MG in NS 500 ML IV SCH ×2 (16:02→23:22)
[2018-02-14] MEDS ORDERED: ALBUMIN 5% 250 ML BOTTLE IV ONE (16:05)
[2018-02-14] MEDS ORDERED: HEPARIN 50,000 UNIT/10 ML VIAL ONE (16:19)
[2018-02-14] MEDS ORDERED: PROPOFOL/EMULSION 1,000 MG/100 ML BOTTLE IV ONE (16:36)
--- NOTE | 2018-02-14 16:41 | HOSPPROG ---
Hospitalist Progress Note Assessment/Plan: Assessment: 67yo M with history of etoh abuse who has not sought medical care for his adult life brought in by family after being found minimally responsive. Labs show acute renal failure and severe hyperkalemia with ECG changes. Plan: # ROXI: multifactorial and likely due to obstruction, nsaids, volume depletion-- baseline unknown. Appreciate renal input, HD performed again today without any fluid removal, tolerated ok # septic shock: now requiring pressors to maintain BP, presumably due to sepsis # critical hyperkalemia: on presentation as high as 8.5 with associated peaked t waves, now normalized # cardiopulmonary arrest: ROSC after brief CPR with likely antecedent seizure leading to respiratory failure and bradycardic prior to arrest # acute hypoxic respiratory failure: initialy intubated following cardiac arrest but then extubated yesterday, today has had increased wob progressing to agonal breathing and intubated again--due to pulm edema/? pna as well as contribution of AMS # pna: aspiration pna versus HCAP but xray today showing bilateral infiltrated concerning for pna particularly in the setting of recent seizure and arrest and being on vent, started on cefepime/vanc given blood cultures # bacteremia: GPC noted in 1/2 blood cultures, contaminant versus true bacteremia, now on vanc pending final s/s # severe anemia/pancytopenia: without clear e/o acute bleed but patient with coagulopathy and likely at least some component of CKD contributing, continue to monitor # metabolic acidosis: 2/2 renal failure/hypoperfusion, toxic alcohols pending at this time, no longer on bicarb gtt # seizure: presumably metabolic cause in setting of severe uremia and profound metabolic derangements while undergoing HD, on keppra for now # metabolic encephalopathy: in the setting of severe uremia, improved yesterday to where he was able to talk but today again became essentially unresponsive, now intubated # FTT: if survives this event will likely need snf # elevated lipase: ? acute pancreatitis given significant elevation, limited evaluation of pancreas by imaging, will repeat lipase as may be due to critical illness/n/v etc # etoh abuse: per family patient has not been drinking x 1 month, no e/o withdrawal currently, # coagulopathy: no e/o bleeding currently, INR of 1.5 # hyperphosphatemia: in setting of ROXI # IP status, critically ill requiring ICU level care, > 40 min spent in critical care time more than half in evaluation of labs and imaging, bedside evaluation and coordination of care with other MDs Subjective: today patient more somnolent and less responsive, over the course of the day with increased respiratory distress and ultimatly required re- intubation, BP dropping over course of day and now on pressors as well Objective: Vital Signs Temp Pulse Resp BP Pulse Ox 37.1 C 121 H 32 H 93/47 L 96 02/14/18 12:00 02/14/18 12:00 02/14/18 12:00 02/14/18 12:00 02/14/18 12:00 Laboratory Results 02/14/18 05:15 02/14/18 05:15 02/13/18 02/14/18 02/15/18 05:59 05:59 05:59 Intake Total 4081 4466 Output Total 2950 1625 Balance 1131 2841 PT 18.4 SEC (12.0-15.0) H 02/13/18 04:10 INR 1.51 (0.83-1.16) H 02/13/18 04:10 malodorous, disheveled anicteric poor dentition ETT in place rrr no mrg coarse bs throughout dec bs soft nt nd + major ble edema warm dry well perfused encephalopathic, more somnolent and now intubated/sedated ICD10 Worksheet Patient Problems: Problems Problem Status Onset Acute renal failure (ARF) Acute Hyperkalemia Acute
--- NOTE | 2018-02-14 16:50 | GPN ---
DATE OF PROCEDURE: 02/14/2018 PROCEDURE: Flexible fiberoptic bronchoscopy INDICATION FOR PROCEDURE: Respiratory failure, possible retained secretions. PROCEDURE NOTE: Due to the urgent nature of the procedure, implied consent was used. The patient wa s hypotensive and having agonal respirations at the time of the time of the procedure. It was my ass essment that there was no risk of airborne infection from the procedure. After an appropriate time-o ut, a bite block was placed between the patient's teeth and the bronchoscope was advanced through the bite block. I immediately identified the vocal cords, passed the bronchoscope through the vocal cor ds, and advanced an endotracheal tube over the bronchoscope. The endotracheal tube was secured in po sition, and the bronchoscope was removed, and the patient was bagged. Oxygen saturations remained in the 90s throughout. The bronchoscope was then reintroduced into the endotracheal tube. I encounter ed a moderate amount of thin bloody secretions bilaterally, primarily in the lower lobes. These were all suctioned until clear. The appropriate position of the endotracheal tube was confirmed at the e nd of the procedure. No specimens were sent. No sedation was used. There were no complications sita arent at the end of the procedure. /[id number]/MODL
[2018-02-14] MEDS ORDERED: PROPOFOL/EMULSION 100 ML IV SCH (16:52)
[2018-02-14] MEDS: VASOPRESSIN 25 UNIT in NS 250 ML IV SCH (18:20)
[2018-02-14 18:45] LABS: PLATELET COUNT 68 10^3/uL (150-400)
[2018-02-14] MEDS ORDERED: D50W 25 GM/50 ML VIAL IV PRN (19:00)
[2018-02-14] MEDS ORDERED: D50W 25 GM/50 ML SYR IVP ONE ×4 (19:06→22:00)
[2018-02-14] MEDS ORDERED: PETROLAT,WHT/MIN OIL/SOD CHL 3.5 GM OPHT.OINT EACHEYE PRN (19:23)
[2018-02-14] MEDS ORDERED: SODIUM BICARBONATE 50 MEQ/50 ML SYR IVP ONE (19:30)
[2018-02-14] MEDS ORDERED: ERTAPENEM 0.5 GM in NS 50 ML IV ONE (23:00)
--- NOTE | 2018-02-14 23:54 | SOAPPROG ---
SOAP Progress Note Assessment/Plan: Assessment/Plan: 67 yo M with no known PMH but has not been to the doctor in many many years who presented to the ED with obtundation and heavy, deep breathing, found to have renal failure (Cr 21.4, BUN 283), hyperkalemia (K 8.5), metabolic acidosis ( bicarb 5) with very peaked T waves. Emergent HD on 02/12 90 minutes in despite mannitol pre-HD and dialysis on high Ca bath, followed by brief cardiac arrest and brief intubation. Subsequently developed septic shock ?aspiration during seizure episode. # ROXI- most likely secondary to a combination of obstruction, volume depletion, and ibuprofen and likely has been progressive for some time. --IR temp dialysis catheter on 02/12 followed by 90min of emergent HD complicated by seizure --Major catheter placed in ED with 1L out with major placement and another 250mL in first 30min after major placement, initially good UOP, subsequently trickled off *Renal ultrasound with limited assessment of R kidney (planning to repeat to get better view), mild hydro of L kidney --Cr initially started to downtrend after first dialysis with major placement, then stalled at Cr 12. Brief cardiac arrest during first treatment, possibly had ischemic hit then, now in septic shock with poor UOP *Tentatively plan for dialysis in the AM, will likely need CRRT # Septic shock- decompensated on 02/14 requiring reintubation and subsequently went in to shock, possibly aspirated when he seized during first dialysis treatment *Echo to look for HF or pericardial effusion in AM --broadened antibiotics --on multiple pressors # Hyperkalemia- secondary to renal failure --emergent HD on 02/12 (90min complicated by seizure). K now ok despite PRBC transfusion # Hypocalcemia- 2/2 renal failure --Checking q6h overnight and replacing PRN # Metabolic acidosis (mixture of AG and NAGMA)- secondary to renal failure --AG 28 on admission, no osmolar gap --now with lactic acidosis presumed 2/2 sepsis # AMS- presumably secondary to uremia but could be multifactorial --improved some with HD, unclear baseline --CTM # Severe anemia- Hgb 4.8 on initial check. Patient denies any GI bleeding. Suggests combination of liver and kidney disease since liver should take over Epo production once Hgb drops to <7. --Received 3u PRBC's --CTM # Seizure- likely 2/2 combination of metabolic derangements and some element of dialysis dysequilibrium, occurred despite pre-treating with mannitol. Needed increased clearance with HD due to life-threatening hyperkalemia (8.5) with significant EKG changes. Only received 90min of treatment on night of admission. --now on Keppra # History of alcohol abuse- family does not think patient has been drinking for some time because he has been feeling too poorly # Elevated lipase- could be 2/2 renal failure and nausea related to uremia, but could also have pancreatitis --defer to primary team for further evaluation Discussed with bedside nurse Subjective: O2 requirement increased, given dose of lasix with some response. Respiratory status continued to worsen. Patient reintubated. Now in septic shock on multiple pressors. Objective: Vital Signs Temp Pulse Resp BP Pulse Ox 37.2 C 109 H 34 H 89/50 L 95 02/14/18 22:30 02/14/18 22:30 02/14/18 22:30 02/14/18 22:30 02/14/18 22:30 Laboratory Results 02/14/18 18:00 02/14/18 18:00 02/13/18 02/14/18 02/15/18 05:59 05:59 05:59 Intake Total 4081 4466 500 Output Total 2950 1625 Balance 1131 2841 500 PT 18.4 SEC (12.0-15.0) H 02/13/18 04:10 INR 1.51 (0.83-1.16) H 02/13/18 04:10 Exam- general- critically ill-appearing, intubated on vent eyes- anicteric sclera, no conjunctival injection HEENT- dry mucous membranes, ETT in place CV- tachycardic, no murmur Pulm- intubated on vent with high O2 requirements, anterior lung neri coarse Abd- soft, non-tender, + bs Extrem- no edema, some wrinkling of skin Neuro- intubated and sedated Psych- unable to assess due to intubation and sedation ICD10 Worksheet Patient Problems: Problems Problem Status Onset Acute renal failure (ARF) Acute Hyperkalemia Acute
[2018-02-15] MEDS ORDERED: D50W 25 GM/50 ML SYR IVP ONE ×2 (00:30→08:09)
[2018-02-15] MEDS: VASOPRESSIN 25 UNIT in NS 250 ML IV SCH (04:40)
[2018-02-15] MEDS: THIAMINE HCL 500 MG in NS 100 ML IV SCH (05:48)
[2018-02-15] MEDS: NOREPINEPHRINE BITARTRATE 4 MG in NS 500 ML IV SCH (07:29)
[2018-02-15] MEDS ORDERED: SODIUM CITRATE 4% 5 ML in SYRINGE 0 ML DIAL PRN (08:25)
[2018-02-15] MEDS ORDERED: MANNITOL 25% 12.5 GM/50 ML VIAL IV PRN (08:27)
[2018-02-15] MEDS: D50W 25 GM/50 ML SYR IVP PRN ×2 (08:30→10:41)
[2018-02-15] MEDS ORDERED: NOREPINEPHRINE BITARTRATE 16 MG in NS 250 ML IV SCH (09:00)
[2018-02-15] MEDS ORDERED: NOREPINEPHRINE BITARTRATE 16 MG in D5W 250 ML IV SCH (09:00)
[2018-02-15 09:01] VITALS: BP 94/55
--- NOTE | 2018-02-15 09:11 | PDINTPN ---
[place] Machine Operator Progress Note Assessment/Plan: Assessment: 67-year-old male with a history of alcoholism brought in after feeling poorly for about a month, including difficulty urinating. Creatinine 21.4, potassium 8.5 at admission. Had a seizure during initial dialysis run, intubated then extubated the next morning, reintubated urgently 02/14 secondary to progressive respiratory failure. Acute kidney injury: Likely due to you obstructive uropathy in combination with NSAID use and dehydration with poor p.o. Intake. Ultrasound revealed mild bilateral hydronephrosis. On hemodialysis and tolerating this better. CRRT being considered. He has a mixed anion gap and non-anion gap metabolic acidosis. He is nonoliguric. Acute respiratory failure. Reintubated yesterday. Status post bronchoscopy, with minimal secretions. On 100% FiO2 with saturations in the low 90s. Chest x -ray with bilateral diffuse infiltrates possibly representing aspiration pneumonia/pneumonitis versus volume overload versus ARDS. On cefepime and vancomycin. Hypotension: On pressors. CVP low. History of alcoholism: History of longstanding heavy alcohol intake. He may be at risk for withdrawal, although his mother does not think he has been drinking much recently because he has been feeling poorly. Withdrawal difficult to assess at this point. Off CIWA well on the ventilator. Seizure: This was likely due to acute changes with dialysis in the presence of severe uremia. It has not recurred. On Keppra. Anemia likely due to combination of renal failure and alcoholism. He has been transfused with 3 units of packed red blood cells. Hematocrit 27 today. Thrombocytopenia: Less than 50 today. Likely due to alcoholism,SIRS. Will hold heparin. GPC on blood culture: Question due to bacteremia or contaminant. On cefepime and vancomycin. DVT prophylaxis: On subcu heparin. GI prophylaxis: On twice daily pantoprazole. Prognosis: Guarded. Critically ill with multiorgan failure. Plan: Continue ventilatory support, increased peep to 10 if blood pressure tolerates. Fluid removal as tolerated. Continue sedation as needed. Continue antibiotics, await cultures. Continue dopamine, levo, vaso - wean as possible. Amio bolus for AFib. Follow H/H. NG tube placement. Start tube feedings tomorrow. Hold heparin today. Further discussions with family regarding proxy decision maker and advanced directives. Over 1 hr of critical care time spent directly with the patient managing multiple issues as outlined above. Discussed with the patient's sister. The patient's daughter will arrive later today. Discussed with respiratory, renal, nursing, and the ICU multi disciplinary team. Subjective: Unresponsive, on ventilator Objective: Vital Signs Temp Pulse Resp BP Pulse Ox 37.4 C 112 H 24 H 94/55 L 91 L 02/15/18 08:00 02/15/18 08:00 02/15/18 08:00 02/15/18 08:00 02/15/18 08:00 Laboratory Results 02/15/18 05:40 02/15/18 05:40 02/14/18 02/15/18 02/16/18 05:59 05:59 05:59 Intake Total 4466 3207.6 Output Total 1625 350 Balance 2841 2857.6 PT 18.4 SEC (12.0-15.0) H 02/13/18 04:10 INR 1.51 (0.83-1.16) H 02/13/18 04:10 Laboratory Tests 02/15/18 02/15/18 05:40 06:08 pCO2 30 L pO2 64 L Total CO2 13 L ABG pH 7.23 L ABG HCO3 12 L ABG O2 Saturation 88 L O2 Concentration % 100 Respiration Rate 35 Assist Control YES Tidal Volume 550 End Tidal CO2 17 PEEP 5 Calcium 7.1 L Phosphorus 7.8 H Magnesium 1.6 Total Bilirubin 0.3 AST 23 ALT 29 Albumin 1.8 L CXR: Bilateral pulmonary infiltrates, diffuse. Lines and tubes in good position. Physical Exam - Physical Exam General Appearance: moderate distress, unresponsive, other (On ventilator), No alert EENT: PERRL/EOMI, ET tube Neck: other (Catheters in place in the right) Respiratory: lungs clear (Anteriorly), decreased breath sounds (At bases), rales (Posteriorly at bases), other (Tachypneic), No rhonchi, No wheezing Cardiac/Chest: irregularly irregular (Recurrent atrial fibrillation: Rate 110) Male Genitalia: other (Tracy catheter in place, non oliguric) Skin: warm/dry, pallor Extremities: pedal edema Neuro/Psych: no motor/sensory deficits (Moves extremities), cognition abnormalities (Unresponsive) ICD10 Worksheet Patient Problems: Problems Problem Status Onset Acute renal failure (ARF) Acute Hyperkalemia Acute
[2018-02-15] MEDS: levETIRAcetam 500MG/NACL 100 ML IV SCH (09:25)
[2018-02-15] MEDS: PANTOPRAZOLE SODIUM 40 MG VIAL IVP SCH (09:25)
[2018-02-15 10:01] LABS: PLATELET COUNT 46 10^3/uL (150-400)
--- NOTE | 2018-02-15 10:07 | SOAPPROG ---
SOAP Progress Note Assessment/Plan: Assessment/Plan: ROXI: likely from obstruction, volume depletion and NSAIDs, has been progressing for some time, severe renal failure on presentation but Cr may be slowly downtrending, nonoliguric, but still acidotic and ill. - Will do HD today. - Plan for HD again tomorrow. - Will continue to monitor renal function for recover or HD/CRRT needs closely. - Avoid hypotension and nephrotoxins. Shock: on pressors, BP labile, would consider placing art line. Acidemia: will modulate on HD and pt also on vent, would not add bicarb at this time. Hypocalcemia: improving with HD. Hyperphosphatemia: modulating with HD. Hypervolemia: pt with good UOP, will try some gentle fluid removal on HD today if pt can tolerate. Subjective: Pt intubated overnight, on pressors but noted that BP is very labile this am. Objective: Vital Signs Temp Pulse Resp BP Pulse Ox 37.4 C 69 36 H 94/55 L 95 02/15/18 08:00 02/15/18 08:25 02/15/18 08:25 02/15/18 08:00 02/15/18 08:25 Laboratory Results 02/15/18 05:40 02/15/18 05:40 02/14/18 02/15/18 02/16/18 05:59 05:59 05:59 Intake Total 4466 3207.6 Output Total 1625 350 Balance 2841 2857.6 PT 18.4 SEC (12.0-15.0) H 02/13/18 04:10 INR 1.51 (0.83-1.16) H 02/13/18 04:10 General: sedated OP: Intubated CV: RRR Resp: intubated and on vent, taking deep respirations Abd: Soft, NT Ext: +1 edema BLE ICD10 Worksheet Patient Problems: Problems Problem Status Onset Acute renal failure (ARF) Acute Hyperkalemia Acute
[2018-02-15] MEDS ORDERED: ALBUMIN 5% 500 ML IV ONE (10:47)
[2018-02-15] MEDS ORDERED: ALBUMIN 5% 500 ML BOTTLE IV ONE (10:50)
[2018-02-15] MEDS ORDERED: AMIODARONE HCL 100 ML IV ONE (11:13)
--- NOTE | 2018-02-15 12:19 | PDDCSUM ---
Discharge Summary Discharge Summary: Dates of service 02/12-02/15/18 Consultations:renal, pulmonary/critical care, radiology Procedures performed: PICC line, endotracheal intubation x 2, echocardiogram, abd/pelvic US Hospital course by problem: Assessment: 67yo M with history of etoh abuse who has not sought medical care for his adult life brought in by family after being found minimally responsive. Labs on arrival show acute renal failure and severe hyperkalemia with ECG changes. Hospital course marked by acute metabolic encephalopathy, acute hypoxic respiratory failure requiring repeat intubation, seizure and cardiac arrest and subsequent cardiac arrest the day of patients with resuscitative attempts aborted per request of family given unlikely positive outcome. Plan: # ROXI: multifactorial and likely due to obstruction, nsaids, volume depletion-- baseline unknown. Appreciate renal input, HD performed while in house though complicated first time by seizure and arrest and unable to remove fluid due to HD instability. # septic shock: requiring pressors to maintain BP in the day preceding , presumably due to sepsis # critical hyperkalemia: on presentation as high as 8.5 with associated peaked t waves, now normalized s/p improved renal function with HD # cardiopulmonary arrest: ROSC after brief CPR with likely antecedent seizure leading to respiratory failure and bradycardic prior to arrest/ subsequent arrest the day of with resuscitative efforts discontinued after several minutes per request of family # acute hypoxic respiratory failure: initialy intubated following cardiac arrest then extubated and re-intubated the following day--due to pulm edema/? pna as well as contribution of AMS and possible development of ARDS # pna: aspiration pna versus HCAP but xray today showing bilateral infiltrated concerning for pna particularly in the setting of recent seizure and arrest and being on vent, started on cefepime/vanc given blood cultures # bacteremia: GPC noted in 1/2 blood cultures, contaminant versus true bacteremia, now on vanc pending final s/s # severe anemia/pancytopenia: without clear e/o acute bleed but patient with coagulopathy and likely at least some component of CKD contributing, continue to monitor # metabolic acidosis: 2/2 renal failure/hypoperfusion, toxic alcohols pending at this time, no longer on bicarb gtt # seizure: presumably metabolic cause in setting of severe uremia and profound metabolic derangements while undergoing HD, on keppra for now # metabolic encephalopathy: in the setting of severe uremia, improved yesterday to where he was able to talk but today again became essentially unresponsive, now intubated # FTT: if survives this event will likely need snf # elevated lipase: ? acute pancreatitis given significant elevation, limited evaluation of pancreas by imaging, will repeat lipase as may be due to critical illness/n/v etc # etoh abuse: per family patient has not been drinking x 1 month, no e/o withdrawal currently, # coagulopathy: no e/o bleeding currently, INR of 1.5 # hyperphosphatemia: in setting of ROXI # patient day of discharge, critically ill requiring ICU level care, > 40 min spent in critical care time more than half in evaluation of labs and imaging, bedside evaluation and care during code blue, coordination of care with other MDs 02/15/18 with multiorgan failure
--- NOTE | 2018-02-15 12:23 | ECHO ---
[email or web address] [address] [address] Main: [phone] Fax: Transthoracic Echocardiogram Name: MELVINA SCOTT MR#: [id number] Study Date: 02/15/2018 Study Time: 07:55 AM Date of : 1950 Age: 67 year(s) Height: 172.7 cm (68 in.) Weight: 92.08 kg (203 lb.) BSA: 2.06 m2 Gender: Male Examination: Echo Indication: Post CORE, Intubated, Sepsis, Tachycardia Image Quality: Contrast: Requested by: Gloria Pham BP: 173 mmHg/127 mmHg Heart Rate: Rhythm: Indication: Post CORE, Intubated, Sepsis, Tachycardia Procedure Staff Injection Maintenance Technician: Vinod Troy RDCS Reading Physician: Jaziel Lomax MD Requesting Provider: Conclusions: No pericardial effusion. Preserved left ventricular systolic function. Right ventricular dilatation with decreased RV systolic function. No significant valvular abnormalities by Doppler study. Measurements: Chambers Valvular Assessment AV/MV Valvular Assessment TV/PV Normal Normal Normal Name Value Range Name Value Range Name Value Range Ao Leena (MM): 2.9 cm (2.2 cm-3.7 AV Vmax: 1.07 m/s (1 m/s-1.7 TR Vmax: 2.28 mm/s ( - ) cm) m/s) TR PGmax: 21 mmHg ( - ) IVSd (2D): 0.9 cm (0.6 cm-1.1 AV maxP mmHg ( - ) syst. PAP: 26 mmHg ( - ) cm) LVOT Vmax: 0.91 m/s (0.7 m/s-1.1 PV Vmax: 1.19 m/s (0.6 m/s-0.9 LVDd (2D): 4.8 cm (4.2 cm-5.9 m/s) m/s) cm) MV E Vmax: 0.39 m/s ( - ) PV PGmax: 6 mmHg ( - ) LVDs (2D): 4.0 cm (2.1 cm-4 MV A Vmax: 0.85 m/s ( - ) cm) MV E/A: 0.46 ( - ) LVPWd (2D): 1.0 cm (0.6 cm-1 cm) LVEF (BP): 65 % (>=55 %) RVDd(2D): 4.1 cm (1.9 cm-3.8 cmmm) Continued Measurements: Chambers Valvular Assessment AV/MV Valvular Assessment TV/PV Name Value Name Value Name Value LADs Lon.8 cm MV E' Septal: 0.06 m/s CVP (est.): 5 mmHg LA Area: 14.9 cm2 MV E/E' Septal: 6.20 LA Volume: 37 ml MV E/E' Lateral: 6.60 LA Volume Index: 18.0 ml/m2 Patient: MELVINA SCOTT Study Date: 02/15/2018 Page 1 of 2 07:55 AM Findings: Left Ventricle: Normal size left ventricle. No LV hypertrophy. Diastolic dysfunction is present. . There is left venticular dysschrony, the overall ejection fraction with 2D, M-mode, and Simpsons measurements is estimated at 65% Tachycardia at 120 bpm.. Right Ventricle: Mildly dilated right ventricle. Moderately reduced RV function. Left Atrium: The left atrium is normal in size. Right Atrium: The right atrium is normal in size. Mitral Valve: The mitral valve is normal in appearance. Trivial mitral valve regurgitation.There is no significant mitral valve regurgitation. No mitral stenosis is present. Aortic Valve: The aortic valve opens well and there is no evidence of aortic stenosis or significant AR.. Tricuspid Valve: The tricuspid valve is normal in appearance and function. There is no significant tricuspid valve regurgitation. Pulmonary artery pressure is not obtained due to inadequate TR jet. Pulmonic Valve: The pulmonic valve is normal in appearance and function. Aorta: The aorta is normal. Pericardium: No pericardial effusion. Exam Comments: (No Signature Object) Patient: MELVINA SCOTT Study Date: 02/15/2018 Page 2 of 2 07:55 AM [id number]
--- NOTE | 2018-02-15 15:26 | ASDISCHSUM ---
Discharge Information Plan Status: Medically Cleared to Leave: Discharge Date:02/15/2018 11:41 AM CM D/C Disposition: ADT D/C Disposition: Projected Discharge Date:02/15/2018 11:41 AM Transportation at D/C: Discharge Delay Reason: Follow-Up Date:02/15/2018 11:41 AM Discharge Slot: Final Diagnosis: Placement Information Patient Contact Information Contact Name:JUANITO Relationship:Mother Address:[address] [facility] Work Phone: City:[place] Phone: [place] [address] Email: Financial Information Financial Class:Medicare Primary Plan Desc:MEDICARE INPATIENT Primary Plan Number:[id number] Secondary Plan Desc: Secondary Plan Number: Assessment Information LACE LACE Length of stay for Answers: 2 days current admission Acuity / Level of Answers: Yes Care: Did the patient have an inpatient admission? Comorbidities - select Answers: Moderate or severe liver all that apply or renal disease # of Emergency department Answers: 1-2 visits in the last 6 months Social determinants Answers: History of substance abuse (ETOH, street drugs, prescription drugs, etc.) Lack of community resources and/or lack of social support (no pcp, lives alone, transportation, izaiah d) Score: 17 Date Signed: 02/15/2018 03:26 PM Electronically Signed By:JANESSA Caro [facility] Progress Note CM Note CM Note Notes: Reviewed chart. Pt admitted for life-threatening hyperkalemia, altered mental status and severe renal failure. Pt is s/p dialysis with a seizure and a brief code with ROSC. History includes ETOH abuse. The pt lives in a bus in the backyard of his mother's house. Per ICU rounds, pt to be extubated today. Pt will need additional dialysis in the next day or so. Discharge plan remains unclear at this time. Pt's mother and sister are involved in his care. CM will continue to follow. Discharge Plan: To be determined Date Signed: 02/13/2018 05:30 PM Electronically Signed By:Jessica Cary RN Intervention Information Intervention Type:*Incorrect Registration Date of Service:02/12/2018 06:16 PM Patient Type:Inpatient Staff Member:Qing Sherman Hours: Discipline: Severity: Comment:
--- NOTE | 2018-02-15 15:31 | PDINTPN ---
Teller Progress Note Assessment/Plan: Assessment: 67-year-old male with a history of alcoholism brought in after feeling poorly for about a month, including difficulty urinating. Creatinine 21.4, potassium 8.5 at admission. Had a seizure during initial dialysis run, intubated then extubated the next morning, reintubated urgently 02/14 secondary to progressive respiratory failure. Acute kidney injury: Likely due to you obstructive uropathy in combination with NSAID use and dehydration with poor p.o. Intake. Ultrasound revealed mild bilateral hydronephrosis. On hemodialysis and tolerating this better. CRRT being considered. He has a mixed anion gap and non-anion gap metabolic acidosis. He is nonoliguric. Acute respiratory failure. Reintubated yesterday. Status post bronchoscopy, with minimal secretions. On 100% FiO2 with saturations in the low 90s. Chest x -ray with bilateral diffuse infiltrates possibly representing aspiration pneumonia/pneumonitis versus volume overload versus ARDS. On cefepime and vancomycin. Hypotension: On pressors. CVP low. History of alcoholism: History of longstanding heavy alcohol intake. He may be at risk for withdrawal, although his mother does not think he has been drinking much recently because he has been feeling poorly. Withdrawal difficult to assess at this point. Off CIWA well on the ventilator. Seizure: This was likely due to acute changes with dialysis in the presence of severe uremia. It has not recurred. On Keppra. Anemia likely due to combination of renal failure and alcoholism. He has been transfused with 3 units of packed red blood cells. Hematocrit 27 today. Thrombocytopenia: Less than 50 today. Likely due to alcoholism,SIRS. Will hold heparin. GPC on blood culture: Question due to bacteremia or contaminant. On cefepime and vancomycin. DVT prophylaxis: On subcu heparin. GI prophylaxis: On twice daily pantoprazole. Prognosis: Guarded. Critically ill with multiorgan failure. Plan: Continue ventilatory support, increased peep to 10 if blood pressure tolerates. Fluid removal as tolerated. Continue sedation as needed. Continue antibiotics, await cultures. Continue dopamine, levo, vaso - wean as possible. Amio bolus for AFib. Follow H/H. NG tube placement. Start tube feedings tomorrow. Hold heparin today. Further discussions with family regarding proxy decision maker and advanced directives. Over 1 hr of critical care time spent directly with the patient managing multiple issues as outlined above. Discussed with the patient's sister. The patient's daughter will arrive later today. Discussed with respiratory, renal, nursing, and the ICU multi disciplinary team. Addendum: Patient became bradycardic following completing dialysis at about 1140. He had no pulse with this slow escape rhythm and no blood pressure. CPR was briefly initiated. The patient's sister was at his bedside and requested that CPR not be continued. The patient had no respiratory efforts and did not regain spontaneous circulation. He was pronounced at approximately 11:42 a.m.. Objective: Vital Signs Temp Pulse Resp BP Pulse Ox 37.4 C 69 36 H 94/55 L 95 02/15/18 08:00 02/15/18 08:25 02/15/18 08:25 02/15/18 08:00 02/15/18 08:25 Laboratory Results 02/15/18 05:40 02/15/18 05:40 02/14/18 02/15/18 02/16/18 05:59 05:59 05:59 Intake Total 4466 3207.6 Output Total 1625 350 Balance 2841 2857.6 PT 18.4 SEC (12.0-15.0) H 02/13/18 04:10 INR 1.51 (0.83-1.16) H 02/13/18 04:10 ICD10 Worksheet Patient Problems: Problems Problem Status Onset Acute renal failure (ARF) Acute Hyperkalemia Acute
== END 2018-02-15 11:41 | disposition expired | DRG 673 ==
LOC: EDUNIT# → OBSVTOIN 18:14 → F2N 19:13
PROVIDERS: ADMIT Internal Medicine; ATTEND Internal Medicine
PROC: 5A1D70Z Performance of Urinary Filtration, Intermittent, Less than 6 Hours Per Day (ICD-10-PCS; principal; 2018-02-12)
PROC: 0JH60XZ Insertion of Tunneled Vascular Access Device into Chest Subcutaneous Tissue and Fascia, Open Approach (ICD-10-PCS; principal; 2018-02-12)
PROC: 0BCB8ZZ Extirpation of Matter from Left Lower Lobe Bronchus, Via Natural or Artificial Opening Endoscopic (ICD-10-PCS; 2018-02-12)
PROC: 0BC68ZZ Extirpation of Matter from Right Lower Lobe Bronchus, Via Natural or Artificial Opening Endoscopic (ICD-10-PCS; 2018-02-12)
PROC: 02HV33Z Insertion of Infusion Device into Superior Vena Cava, Percutaneous Approach (ICD-10-PCS; 2018-02-12)
PROC: 30233N1 Transfusion of Nonautologous Red Blood Cells into Peripheral Vein, Percutaneous Approach (ICD-10-PCS; 2018-02-13)
PROC: 0BH18EZ Insertion of Endotracheal Airway into Trachea, Via Natural or Artificial Opening Endoscopic (ICD-10-PCS; 2018-02-14)
PROC: 5A1945Z Respiratory Ventilation, 24-96 Consecutive Hours (ICD-10-PCS; 2018-02-14)
DX: N17.9 Acute kidney failure, unspecified (principal); E87.5 Hyperkalemia; J96.01 Acute respiratory failure with hypoxia; A41.9 Sepsis, unspecified organism; R65.21 Severe sepsis with septic shock; J18.9 Pneumonia, unspecified organism; I46.8 Cardiac arrest due to other underlying condition; R56.9 Unspecified convulsions; E87.2 Acidosis; G93.41 Metabolic encephalopathy; D68.4 Acquired coagulation factor deficiency; E83.51 Hypocalcemia; D63.8 Anemia in other chronic diseases classified elsewhere; F10.20 Alcohol dependence, uncomplicated
CPT/HCPCS: 80305; 82435-PO; 82565-PO; 82693-90; 82947-PO; 84132-PO; 84295-PO; 84484-ER; 84520-PO; 84600-90; 85014-ER; 86704-90; 96374; C1750; G0480; J0610; J0690; J0692; J1265; J1335; J1642; J1644; J1815; J1940; J1953; J2060; J2150; J2704; J3010; J3370; J3411; J3475; J7613; P9016; P9021; P9041